=== PATIENT | female | born 1965 | race Caucasian/White ===

== ENCOUNTER 2017-09-26 00:35 | Emergency (ER) | payer OTHER ==
[~2017-09-26] VITALS: Ht 160 cm; Wt 74.1 kg
[~2017-09-26 00:35] MED LIST: ABIL5TAB PO; ALBU1AER INH; ALPR0.5T3 PO; FLON0.053; GABA100C2 PO; KLON2TAB PO; PERC10TA27 PO; PHEN100 PO; PRED20 PO; PROV200T11 PO; SERO200T PO
[2017-09-26 00:46] VITALS: BP 174/84; PULSE 94; RESP 18; TEMP 98; O2SAT 98
[2017-09-26] MEDS ORDERED: IBUP-232 PO (01:18)
[2017-09-26] MEDS ORDERED: PERC10TA27 PO (01:18)
[2017-09-26] MEDS ORDERED: DEPA125T PO (01:18)
[2017-09-26] MEDS ORDERED: BACL20TA PO (01:18)
[2017-09-26] MEDS ORDERED: XANA1TAB2 PO (01:18)
--- NOTE | 2017-09-26 01:37 | RADRPT ---
EXAM DATE/TIME: 09/26/2017 01:25 [facility] COMPARISON: No previous studies available for comparison. INDICATIONS : Back pain after falling one week ago. MEDICAL HISTORY : None. SURGICAL HISTORY : None. ENCOUNTER: Initial ACUITY: 1 week PAIN SCORE: 5/10 LOCATION: thoracic spine. FINDINGS: 3 views of the thoracic spine demonstrate mild rightward convex curvature. There is subtle height los s at the superior endplate of T7. No definite fracture line is seen. Otherwise, no fracture or compre ssion deformity is seen. There is no anterolisthesis or retrolisthesis. The visualized surrounding st ructures demonstrate no acute finding. Right chest wall [id number] is present. CONCLUSION: Mild height loss of the T7 vertebral body of uncertain chronicity. Otherwise, there are mild degenera tive changes of the thoracic spine without an acute abnormality seen. Sixto Alfaro MD on September 26, 2017 at 1:34 Board Certified Radiologist. This report was verified electronically.
--- NOTE | 2017-09-26 02:22 | RADRPT ---
EXAM DATE/TIME: 09/26/2017 01:55 [facility] COMPARISON: No previous studies available for comparison. INDICATIONS : Trauma. Fall. RADIATION DOSE: 18.98 CTDIvol (mGy) MEDICAL HISTORY : Multple sclerosis. SURGICAL HISTORY : None. ENCOUNTER: Initial ACUITY: 1 week PAIN SCALE: 8/10 LOCATION: Bilateral neck TECHNIQUE: Volumetric scanning of the cervical spine was performed. Multiplanar reconstructions in the sagittal, coronal and oblique axial planes were performed. Using automated exposure control and adjustment o f the mA and/or kV according to patient size, radiation dose was kept as low as reasonably achievable to obtain optimal diagnostic quality images. DICOM format image data is available electronically f or review and comparison. FINDINGS: There is normal sagittal spine alignment of the cervical spine. No anterolisthesis or retrolisthesis is present. The atlantoaxial relationship is within normal limits. There is no prevertebral soft tiss ue swelling present. No fracture or dislocation is identified. There is degenerative disc disease at C6-C7. The visualized portions of the posterior fossa, paraspinous soft tissues, and upper lung zones demons trate no acute abnormality. CONCLUSION: No acute cervical spine abnormality is identified. Sixto Alfaro MD on September 26, 2017 at 2:18 Board Certified Radiologist. This report was verified electronically.
[2017-09-26] MEDS ORDERED: IBUPROFEN 600 MG TAB PO ONE (02:30)
--- NOTE | 2017-09-26 02:41 | PD ---
HPI Chief Complaint: Facial Pain or Swelling Time Seen by Provider: 01:21 Travel History International Travel<30 days: No Contact w/Intl Traveler<30days: No Traveled to known affect area: No History of Present Illness HPI 52-year-old female presents to the emergency department by private transportation for complaint of neck pain. Patient reports 1 week ago she had a non-syncopal fall in the bathroom injuring her face. Patient presents with subacute bruising to the left face with left sub-conjunctival hemorrhage. Patient states she was seen by her primary care provider because of headache and due to the bruising to her face and was referred to the [facility] and had a CT brain noncontrast and a CT facial bones which was reportedly negative. Patient states subsequently she is developed neck pain and did not have imaging of her neck reportedly at the time of her CT brain and face. Patient also complains of some upper back pain that she has had since a fall 2013 years ago but it seems to be more noticeable since her fall 1 week ago. Patient does not report any arm or leg numbness tingling or weakness. Patient had no altered mentation or visual disturbance. Patient denies other injury or complaint. Patient states she takes no blood thinning agents. Patient has a port for management of history of multiple sclerosis for which she is prescribed baclofen and has chronic pain syndrome for which she is prescribed Percocet 10. Patient's had no fever or chills. Patient does not report any nausea vomiting chest pain rib pain shortness of breath abdominal pain dysuria frequency urgency hematuria flank pain bladder or bowel incontinence or lower extremity numbness tingling or weakness beyond her chronic weakness related to her history of MS. Patient reports her right lower extremity is always slightly weaker than her left lower extremity. Patient reports no new MS symptoms. [facility] Past Medical History Narrative Medical Bipolar disorder, multiple sclerosis, seizure, kidney stone, [id number]; tobacco use; nursing notes reviewed Bipolar Disorder: Yes Diminished Hearing: No Kidney Stones: Yes Neurologic: Yes (MS) Respiratory: Yes (TB CHILD) Seizures: Yes ?: Not : 2 Para: 0 Tubal Ligation: Yes Past Surgical History Appendectomy: Yes Genitourinary Surgery: Yes (STENT KIDNEY) Neurologic Surgery: Yes (MS) Social History Alcohol Use: No Tobacco Use: Yes (1/2 PACK X ONE YR. 1 PPD BERORE THAT) Substance Use: No Allergies-Medications (Allergen,Severity, Reaction): Coded Allergies: morphine (Verified Allergy, Intermediate, 09/26/17) Reported Meds & Prescriptions Reported Meds & Active Scripts Active Reported Depakote DR (Divalproex Sodium) 125 Mg Tabdr 125 Mg PO BID Ibuprofen 600 Mg Tab 600 Mg PO Q8HR PRN Percocet (Oxycodone-Acetaminophen) 10-325 mg Tab 1 Tab PO Q6H PRN Xanax (Alprazolam) 1 Mg Tab 1 Mg PO Q6H PRN Baclofen 20 Mg Tab 20 Mg PO TID Review of Systems Except as stated in HPI: all other systems reviewed are Neg Physical Exam Narrative GENERAL: Well-developed well-nourished female no acute distress or respiratory distress; GCS 15 SKIN: Warm and dry. HEAD: Atraumatic. Normocephalic. No scalp soft tissue swelling abrasion laceration or bony abnormality. EYES: Pupils equal and round. Extraocular muscles are intact. No scleral icterus. No injection or drainage. Left sub-conjunctival hemorrhage. Left periorbital soft tissue swelling and subacute ecchymosis with tenderness no palpable bony step-off. ENT: No nasal bleeding or discharge. Mucous membranes pink and moist. Airway is patent. No hemotympanum bilaterally. NECK: Trachea midline. No JVD. Mild midline tenderness to direct palpation along the cervical spine and left paracervical muscle spasm no bony step-off or point tenderness. CARDIOVASCULAR: Regular rate and rhythm. Radial and dorsalis pedis pulses 2+ to palpation bilaterally. RESPIRATORY: No accessory muscle use. Clear to auscultation. Breath sounds equal bilaterally. GASTROINTESTINAL: Abdomen soft, non-tender, nondistended. Hepatic and splenic margins not palpable. MUSCULOSKELETAL: Extremities without clubbing, cyanosis, or edema. No obvious deformities. Mild tenderness to direct palpation along the thoracic spine no tenderness to palpation along the lumbar spine and no point tenderness or bony step-off. NEUROLOGICAL: Awake and alert. No obvious cranial nerve deficits. Motor grossly within normal limits. Five out of 5 muscle strength in the arms and legs. DTRs 2+ and equal bilateral upper extremities and lower extremities no clonus. Normal speech. PSYCHIATRIC: Appropriate mood and affect; insight and judgment normal. Data Data Last Documented VS Vital Signs Date Time Temp Pulse Resp B/P (MAP) Pulse Ox O2 Delivery O2 Flow Rate FiO2 3/6/18 02:55 87 16 127/72 (90) 100 09/26/17 00:[address] Cerv Spine W/O Contrast (09/26/17 ) Spine, Thoracic-Ap/Lat/Sw(3vw) (09/26/17 ) Ed Discharge Order (09/26/17 02:26) Ibuprofen (Motrin) (09/26/17 02:30) MDM Medical Decision Making Medical Screen Exam Complete: Yes Emergency Medical Condition: Yes Medical Record Reviewed: Yes Differential Diagnosis Posttraumatic cephalgia, cervical strain sprain fracture, thoracic spine contusion fracture Narrative Course 52-year-old female presents today for complaint of neck pain status post fall status post imaging CT brain noncontrast at [place] reportedly negative for acute process per patient CT facial bones noncontrast at [place] reportedly normal per patient but no imaging of the cervical spine with neck pain. No upper extremity or lower extremity new numbness tingling or weakness or bladder or bowel dysfunction. Patient also complains of mild upper back discomfort. Imaging studies ordered CT cervical spine reveals no acute abnormality however plain film of the thoracic spine reveals T7 height decrease age-indeterminate this is discussed with patient and there is no point tenderness over the T7 vertebrae on reexamination patient reports that she fell down steps approximately 13 years ago and has had back pain since that time. Patient denies other concerns or complaints. Her chronic medications as chronically prescribed and follow-up with her primary care provider. Diagnosis Primary Impression: Cervical myofascial strain Qualified Codes: S16.1XXA - Strain of muscle, fascia and tendon at neck level , initial encounter Additional Impression: Closed compression fracture of thoracic vertebra Qualified Codes: S22.000A - Wedge compression fracture of unspecified thoracic vertebra, initial encounter for closed fracture Referrals: Primary Care Physician 1 day Patient Instructions: General Instructions Additional Instructions: Continue current medications as chronically prescribed Follow-up with your primary care provider Return to the emergency department for any concerns or change in condition Med/Other Pt SpecificInfo: No Change to Meds Disposition: 01 DISCHARGE HOME Condition: Stable Nena Oshea MD Sep 26, 2017 02:41
[2017-09-26 02:55] VITALS: BP 127/72
== END 2017-09-26 02:57 | disposition home or self-care (01) ==
LOC: PHED 00:35
DX: S16.1XXA Strain of muscle, fascia and tendon at neck level, initial encounter (principal); S22.000A Wedge compression fracture of unspecified thoracic vertebra, initial encounter for closed fracture; W18.30XA Fall on same level, unspecified, initial encounter; F31.9 Bipolar disorder, unspecified; G35 Multiple sclerosis; F17.210 Nicotine dependence, cigarettes, uncomplicated
CPT/HCPCS: 72072; 72125